=== PATIENT | female | born 1955 | race Two or more races ===

== ENCOUNTER 2022-02-20 07:37 | Day surgery (SDC) | payer OTHER ==
[~2022-02-20] VITALS: Ht 154.9 cm; Wt 60.3 kg
[~2022-02-20 07:37] MED LIST: LIPITOR20 MG PO; PROLIA60 MG/1 ML SUBCUTANEO
[2022-02-20] MEDS ORDERED: CEFADROXIL500 MG PO (12:41)
[2022-02-20] MEDS ORDERED: PERCOCET 5-3251 EACH PO (12:41)
== END 2022-02-20 15:15 | disposition home or self-care (01) ==
LOC: CIR.AMB 07:37
PROVIDERS: ATTEND Orthopaedic Surgery Sports Medicine
DX: S52.291A Other fracture of shaft of right ulna, initial encounter for closed fracture (principal); X58.XXXA Exposure to other specified factors, initial encounter; Y93.9 Activity, unspecified; Y92.9 Unspecified place or not applicable; Z20.822 Contact with and (suspected) exposure to COVID-19
CPT/HCPCS: 25545; L8699